=== PATIENT | male | born 2005 | race Caucasian/White ===

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

== ENCOUNTER 2023-09-13 10:14 | Emergency (ER) | payer OTHER ==
[~2023-09-13] VITALS: Ht 185.4 cm; Wt 77.1 kg
[2023-09-13] MEDS ORDERED: Acetaminophen/Oxycodone 5 MG/325 MG TABLET PO ONE (10:30)
[2023-09-13] MEDS ORDERED: HYDROCODONE-AC1 EAC1 PO (11:00)
== END 2023-09-13 11:20 | disposition home or self-care (01) ==
LOC: ED 10:14
DX: S62.396A Other fracture of fifth metacarpal bone, right hand, initial encounter for closed fracture (principal); W22.01XA Walked into wall, initial encounter; Y93.89 Activity, other specified; Y92.89 Other specified places as the place of occurrence of the external cause; Y99.8 Other external cause status

== ENCOUNTER → 2023-09-30 | Outpatient (CLI) | payer OTHER ==
[~2023-09-30] MED LIST changes: +HYDROCODONE-AC1 EAC1 PO
== END | disposition home or self-care (01) ==
LOC: ORTHO 01:19
PROVIDERS: ATTEND Orthopaedic Surgery
DX: S92.351D Displaced fracture of fifth metatarsal bone, right foot, subsequent encounter for fracture with routine healing (principal); M79.641 Pain in right hand; X58.XXXD Exposure to other specified factors, subsequent encounter

== ENCOUNTER → 2023-10-16 | Outpatient (CLI) | payer OTHER | END | disposition home or self-care (01) | LOC: ORTHO 01:58 | PROVIDERS: ATTEND Orthopaedic Surgery | DX: S62.336D Displaced fracture of neck of fifth metacarpal bone, right hand, subsequent encounter for fracture with routine healing (principal); X58.XXXD Exposure to other specified factors, subsequent encounter ==